=== PATIENT | female | born 1985 | race American Indian/Alaskan Native ===

== ENCOUNTER 2020-01-08 10:45 | Emergency (ER) | payer OTHER ==
[~2020-01-08] VITALS: Ht 167.6 cm; Wt 89.8 kg
[~2020-01-08 10:45] MED LIST: COLACE100 MG PO; NORGESTIMATE-E1 EAC1 PO; POLYSACCHARIDE150 MG PO; PROZAC20 MG PO; VITAFOL-OB+DHA1 EACH PO; VITAMIN D32000 UNIT PO; ZOVIRAX200 MG PO
[2020-01-08] MEDS ORDERED: DICYCLOMINE HCL20 MG PO (12:59)
== END 2020-01-08 13:41 | disposition home or self-care (01) ==
LOC: ED 10:45
DX: K92.2 Gastrointestinal hemorrhage, unspecified (principal); F17.200 Nicotine dependence, unspecified, uncomplicated
CPT/HCPCS: 80053; 81001; 83690; 84703; 85025; 96361; 96374; 96375; 99284-25; J1885; J2405; J7030

== ENCOUNTER 2020-08-18 14:34 | Emergency (ER) | payer OTHER ==
[~2020-08-18] VITALS: Ht 167.6 cm; Wt 89.8 kg
[~2020-08-18 14:34] MED LIST changes: +DICYCLOMINE HCL20 MG PO
[2020-08-18] MEDS ORDERED: KEFLEX500 MG PO (15:05)
== END 2020-08-18 15:19 | disposition home or self-care (01) ==
LOC: ED 14:34
DX: L03.316 Cellulitis of umbilicus (principal); F17.200 Nicotine dependence, unspecified, uncomplicated
CPT/HCPCS: 99283

== ENCOUNTER 2022-06-20 20:45 | Emergency (ER) | payer BC, OTHER ==
[~2022-06-20] VITALS: Ht 167.6 cm; Wt 97.2 kg
[~2022-06-20 20:45] MED LIST changes: +KEFLEX500 MG PO
[2022-06-20] MEDS ORDERED: VALACYCLOVIR500 MG PO (21:26)
[2022-06-20] MEDS ORDERED: BENZONATATE100 MG PO (22:26)
== END 2022-06-20 22:38 | disposition home or self-care (01) ==
LOC: ED 20:45
DX: R05.8 Other specified cough (principal); R51.9 Headache, unspecified; Z20.822 Contact with and (suspected) exposure to COVID-19
CPT/HCPCS: 87502; 87880; 99283; C9803; U0003

== ENCOUNTER 2022-10-05 10:53 | Emergency (ER) | payer OTHER ==
[~2022-10-05] VITALS: Ht 167.6 cm; Wt 100.3 kg
[~2022-10-05 10:53] MED LIST changes: +BENZONATATE100 MG PO; +VALACYCLOVIR500 MG PO
[2022-10-05] MEDS ORDERED: VENTOLIN HFA18 GM INH (12:47)
== END 2022-10-05 13:05 | disposition home or self-care (01) ==
LOC: ED 10:53
DX: J10.1 Influenza due to other identified influenza virus with other respiratory manifestations (principal); F17.200 Nicotine dependence, unspecified, uncomplicated; Z20.822 Contact with and (suspected) exposure to COVID-19
CPT/HCPCS: 87502; 99283; C9803; U0003

== ENCOUNTER 2023-06-05 06:24 | Day surgery (SDC) | payer OTHER | END 2023-06-05 10:15 | disposition home or self-care (01) | LOC: DS 06:24 | PROC: 0DBN8ZX Excision of Sigmoid Colon, Via Natural or Artificial Opening Endoscopic, Diagnostic (ICD-10-PCS; principal; 2023-06-05) | PROC: 0DBE8ZX Excision of Large Intestine, Via Natural or Artificial Opening Endoscopic, Diagnostic (ICD-10-PCS; 2023-06-05) | PROC: 0DB98ZX Excision of Duodenum, Via Natural or Artificial Opening Endoscopic, Diagnostic (ICD-10-PCS; 2023-06-05) | PROC: 0DB78ZX Excision of Stomach, Pylorus, Via Natural or Artificial Opening Endoscopic, Diagnostic (ICD-10-PCS; 2023-06-05) | DX: K62.5 Hemorrhage of anus and rectum (principal); K60.0 Acute anal fissure; K57.30 Diverticulosis of large intestine without perforation or abscess without bleeding; K63.5 Polyp of colon; K64.8 Other hemorrhoids; K64.4 Residual hemorrhoidal skin tags; K29.50 Unspecified chronic gastritis without bleeding; J39.2 Other diseases of pharynx; K90.0 Celiac disease; K52.9 Noninfective gastroenteritis and colitis, unspecified; J30.2 Other seasonal allergic rhinitis; E66.9 Obesity, unspecified; Z68.33 Body mass index [BMI] 33.0-33.9, adult; Z79.899 Other long term (current) drug therapy ==